=== PATIENT | male | born 2000 | race Native Hawaiian/Other Pacific Islander ===

== ENCOUNTER 2021-08-09 07:38 | Emergency (ER) | payer OTHER ==
[~2021-08-09] VITALS: Ht 182.9 cm; Wt 61.2 kg
[2021-08-09 07:46] VITALS: TEMP 97.7
[2021-08-09 08:55] VITALS: BP 110/70
== END 2021-08-09 08:59 | disposition home or self-care (01) ==
LOC: ED 07:38
DX: L55.1 Sunburn of second degree (principal)
CPT/HCPCS: 96372; 99282; J1885